=== PATIENT | male | born 1995 | race Caucasian/White ===

== ENCOUNTER 2022-04-09 16:46 | Inpatient (IN) | payer MEDICAID ==
[~2022-04-09] VITALS: Ht 182.9 cm; Wt 72.6 kg
[2022-04-09] MEDS ORDERED: IPRATROPIUM BROMIDE 0.5 MG/2.5 ML NEBU ONE ×2 (16:55→21:06)
[2022-04-09] MEDS ORDERED: ALBUTEROL SULFATE 2.5 MG/3 ML NEBU ONE (16:55)
[2022-04-09] MEDS ORDERED: ALBU18HF2 PO (16:57)
[2022-04-09] MEDS ORDERED: methylPREDNISolone SOD SUCC 125 MG/2 ML VIAL IV ONE (17:00)
[2022-04-09] MEDS ORDERED: MAGNESIUM SULFATE 2 GM in IV DEXTROSE 5% 100 ML IV ONE (17:00)
[2022-04-09] MEDS ORDERED: IPRATROPIUM BROMIDE 0.5 MG/2.5 ML NEBU NEB ONE (17:00)
[2022-04-09] MEDS ORDERED: ALBUTEROL SULFATE 2.5 MG/3 ML NEBU NEB ONE (17:00)
[2022-04-09 17:08] LABS: HEMATOCRIT 42.9 % (36.7-47.1); MEAN CORPUSCULAR HEMOGLOBIN 31.6 uug (23.8-33.4); MEAN CORPUSCULAR VOLUME 94.8 fL (73.0-96.2); PLATELET COUNT (AUTO) 294 K/uL (152-348)
--- NOTE | 2022-04-09 17:10 | NUR ---
patient brought in by rescue. patient receiving breathing treatments, still short of breath states it is much better.
[2022-04-09] MEDS ORDERED: methylPREDNISolone SOD SUCC 125 MG/2 ML VIAL ONE (17:14)
[2022-04-09] MEDS ORDERED: MAGNESIUM SULFATE/D5W 100 ML ONE ×2 (17:15→17:22)
[2022-04-09 17:16] LABS: ABG BASE EXCESS -2.5 mmol/L; ABG HCO3 20.9 mmol/L; ABG PCO2 32.7 mmHg (35.0-45.0); ABG PH 7.424 (7.350-7.450); ABG SITE LEFT RADIAL; COHb 0.4 % (0.5-1.5); MetHb 0.3 % (0.0-1.5); O2Hb 98.6 % (94.0-97.0); VENT MODE HHN 6 Lpm w/mask
[2022-04-09 17:19] LABS: CARBON DIOXIDE 27 mmol/L (21-32); CHLORIDE 103 mmol/L (98-107); CREATININE 1.4 mg/dL (0.6-1.3); GLUCOSE 232 mg/dL (74-106); POTASSIUM 3.5 mmol/L (3.5-5.1); UREA NITROGEN, BLOOD 14 mg/dL (7-18)
[2022-04-09 17:32] LABS: ALANINE AMINOTRANSFERASE 24 U/L (16-63); ALKALINE PHOSPHATASE 71 U/L (50-136); ASPARTATE AMINOTRANSFERASE 21 U/L (15-37); BILIRUBIN,DIRECT 0.2 mg/dL (0.0-0.2); BILIRUBIN,TOTAL 0.9 mg/dL (0.2-1.0); TOTAL PROTEIN, SERUM 7.1 g/dL (6.4-8.2)
[2022-04-09] MEDS ORDERED: MAGNESIUM HYDROXIDE 30 ML LIQUID UDC PO PRN (18:00)
[2022-04-09] MEDS ORDERED: ACETAMINOPHEN 325 MG TABLET PO PRN (18:00)
[2022-04-09] MEDS ORDERED: IV NS 1000 ML 1,000 ML IV PRN (18:00)
[2022-04-09] MEDS ORDERED: ONDANSETRON 4 MG/2 ML VIAL IV PRN (18:00)
[2022-04-09] MEDS ORDERED: METH4TAB3 PO (19:14)
--- NOTE | 2022-04-09 19:40 | NUR ---
pt was initially considering that he wants to go home despite the fact he was admitted to the hospital. After Helena Javier called and spoke with the previous nurse mirza and relayed information leilani the pt will stay and be admitted to the hospital.
[2022-04-09] MEDS ORDERED: methylPREDNISolone SOD SUCC 40 MG/ML VIAL IV SCH (21:00)
[2022-04-09] MEDS ORDERED: ALBUTEROL SULFATE 1.25 MG/3 ML NEBU ONE (21:05)
[2022-04-09] MEDS: ALBUTEROL SULFATE 1.25 MG/3 ML NEBU NEB SCH (21:17)
[2022-04-09] MEDS: IPRATROPIUM BROMIDE 0.5 MG/2.5 ML NEBU NEB SCH (21:17)
[2022-04-09] MEDS ORDERED: methylPREDNISolone SOD SUCC 40 MG/ML VIAL ONE (21:55)
--- NOTE | 2022-04-09 23:22 | NUR ---
pt denies sob or chest pain pt is resting comfortably.
[2022-04-10] MEDS: IPRATROPIUM BROMIDE 0.5 MG/2.5 ML NEBU NEB SCH ×6 (00:08→15:30)
[2022-04-10] MEDS: ALBUTEROL SULFATE 1.25 MG/3 ML NEBU NEB SCH ×6 (00:09→15:30)
[2022-04-10] MEDS ORDERED: IPRATROPIUM BROMIDE 0.5 MG/2.5 ML NEBU ONE ×3 (00:14→10:46)
[2022-04-10] MEDS ORDERED: ALBUTEROL SULFATE 1.25 MG/3 ML NEBU ONE ×4 (00:14→10:58)
[2022-04-10 07:42] LABS: HEMATOCRIT 40.8 % (36.7-47.1); MEAN CORPUSCULAR HEMOGLOBIN 31.5 uug (23.8-33.4); MEAN CORPUSCULAR VOLUME 93.1 fL (73.0-96.2); PLATELET COUNT (AUTO) 319 K/uL (152-348)
[2022-04-10 07:48] LABS: MAGNESIUM 1.8 mg/dL (1.8-2.4); POTASSIUM 4.2 mmol/L (3.5-5.1)
[2022-04-10] MEDS ORDERED: methylPREDNISolone SOD SUCC 125 MG/2 ML VIAL IV ONE (08:15)
[2022-04-10] MEDS ORDERED: methylPREDNISolone SOD SUCC 40 MG/ML VIAL ONE (08:51)
--- NOTE | 2022-04-10 10:00 | NUR ---
Per [employer], pt to be dischared.
--- NOTE | 2022-04-10 10:38 | NUR ---
IV removed. Catheter intact and site benign. Pressure and 4x4 gauze applied to site. No bleeding noted.
--- NOTE | 2022-04-10 10:38 | NUR ---
Patient discharged to home in stable condition.
[2022-04-10 10:39] VITALS: BP 123/61
--- NOTE | 2022-04-10 10:41 | NUR ---
DR MENDES IN TO SEE PATIENT
== END 2022-04-10 11:00 | disposition home or self-care (01) | DRG 141 ==
LOC: ER 16:49 → TRANSITION 19:35
PROVIDERS: ADMIT Internal Medicine; ATTEND Internal Medicine
DX: J45.901 Unspecified asthma with (acute) exacerbation (principal); J96.01 Acute respiratory failure with hypoxia; N17.0 Acute kidney failure with tubular necrosis; R73.9 Hyperglycemia, unspecified; T38.0X5A Adverse effect of glucocorticoids and synthetic analogues, initial encounter; D72.828 Other elevated white blood cell count; Z20.822 Contact with and (suspected) exposure to COVID-19; E86.0 Dehydration; Y92.230 Patient room in hospital as the place of occurrence of the external cause
CPT/HCPCS: 36415; 36600; 71045; 83735; 84100; 84484; 85025; 93005; 94640; A4663; G0378; J2920; J2930; J3475; J3590; J7040